=== PATIENT | male | born 1990 | race Caucasian/White ===

== ENCOUNTER 2024-01-18 09:22 | Emergency (ER) | payer MEDICAID ==
[~2024-01-18] VITALS: Ht 170.2 cm; Wt 68.0 kg
[2024-01-18 09:37] VITALS: O2SAT 99
[2024-01-18] MEDS: METOCLOPRAMIDE HCL 10MG/2ML VIAL IV ONE (11:30)
[2024-01-18] MEDS: ACETAMINOPHEN 325MG TABLET PO ONE (11:30)
[2024-01-18] MEDS: LACTATED RINGERS 1,000 ML IV SCH (11:36)
[2024-01-18 14:22] VITALS: BP 122/74; PULSE 63; RESP 18; TEMP 98.7
== END 2024-01-18 14:40 | disposition home or self-care (01) ==
LOC: ER 10:00
DX: R51.9 Headache, unspecified (principal)
CPT/HCPCS: 70450; 96361; 96374; 99285; J2765; Z7610